=== PATIENT | female | born 2000 | race Caucasian/White ===

== ENCOUNTER 2021-07-14 21:53 | Emergency (ER) | payer OTHER ==
[~2021-07-14 21:53] MED LIST: CEFUROXIME500 MG PO; IBUPROFEN600 MG PO; ZOFRAN ODT 4 MG4 MG PO
[2021-07-14] MEDS ORDERED: AUGMENTIN 875-1 EACH PO (23:32)
== END 2021-07-14 23:45 | disposition home or self-care (01) ==
LOC: ER1 21:53
DX: K02.9 Dental caries, unspecified (principal); K05.10 Chronic gingivitis, plaque induced
CPT/HCPCS: 99282

== ENCOUNTER 2022-01-21 20:26 | Emergency (ER) | payer OTHER ==
[~2022-01-21 20:26] MED LIST changes: +AUGMENTIN 875-1 EACH PO; +PENICILLIN V P500 MG PO; +TORADOL 10 MG T10 MG PO
[2022-01-21 21:47] LABS: HEMOGLOBIN 13.9 gm/dl (12.3-15.3); RED BLOOD COUNT 4.83 M/UL (4.00-5.10); WHITE BLOOD COUNT 7.1 K/UL (4.5-11.0)
[2022-01-21 22:24] LABS: BUN/CREATININE RATIO 10 (0-10)
== END 2022-01-22 02:33 | disposition home or self-care (01) ==
LOC: ER1 20:26
PROVIDERS: Physician Assistant
DX: N93.9 Abnormal uterine and vaginal bleeding, unspecified (principal); Z91.040 Latex allergy status
CPT/HCPCS: 80053; 81001; 84703; 85025; 99284